=== PATIENT | male | born 1955 | race Caucasian/White ===

== ENCOUNTER 2019-07-12 12:09 | Emergency (ER) | payer MEDICARE ==
--- NOTE | 2019-07-12 12:44 | EDM.PDOC ---
ED HPI GENERAL MEDICAL PROBLEM - General Chief Complaint: Bite:Animal, Insect Stated Complaint: TICK BITE Time Seen by Provider: 07/12/19 12:35 Source of Information: Reports: Patient History Limitations: Reports: No Limitations - History of Present Illness INITIAL COMMENTS - FREE TEXT/NARRATIVE: 10 days ago the pt had a deer tick on his left buttock area. He pulled it off and he was not seen. Onset: Other ( symptoms of fevers and body aches started 2 days ago. ) Duration: Hour(s): Location: Reports: Generalized Associated Symptoms: Reports: No Other Symptoms Generalized Pain Score (Numeric/FACES): 1 - Related Data Allergies Allergy/AdvReac Type Severity Reaction Status Date / Time No Known Allergies Allergy Verified 07/12/19 12:31 Home Meds: Home Meds NK [No Known Home Meds] 07/12/19 [History] Past Medical History Musculoskeletal History: Reports: Gout Endocrine/Metabolic History: Reports: Obesity/BMI 30+ Dermatologic History: Reports: Psoriasis - Past Surgical History Head Surgeries/Procedures: Reports: None Endocrine Surgical History: Reports: None Musculoskeletal Surgical History: Reports: Other (See Below) Other Musculoskeletal Surgeries/Procedures:: rt ankle Dermatological Surgical History: Reports: None Social & Family History - Tobacco Use Smoking Status *Q: Never Smoker Second Hand Smoke Exposure: No - Caffeine Use Caffeine Use: Reports: Coffee - Alcohol Use Days Per Week of Alcohol Use: 7 Number of Drinks Per Day: 4 Total Drinks Per Week: 28 - Recreational Drug Use Recreational Drug Use: No ED ROS GENERAL - Review of Systems Review Of Systems: See Below Constitutional: Reports: Fever, Chills, Malaise, Night Sweats HEENT: Reports: No Symptoms Respiratory: Reports: No Symptoms Cardiovascular: Reports: No Symptoms Endocrine: Reports: No Symptoms GI/Abdominal: Reports: No Symptoms Musculoskeletal: Reports: Muscle Pain Skin: Reports: No Symptoms Neurological: Reports: No Symptoms ED EXAM, ANIMAL BITE - Physical Exam Exam: See Below Text/Narrative:: pt arrived with a history of a deer tick which was removed about 10 days. He did not see anyone and he is now having fevers and joint pain. Exam Limited By: No Limitations General Appearance: Alert, Anxious, Mild Distress Ears: Normal TMs Nose: Normal Inspection Throat/Mouth: Normal Inspection Head: Atraumatic Neck: Normal Inspection Respiratory/Chest: No Respiratory Distress Cardiovascular: Regular Rate, Rhythm GI/Abdominal: Soft (Male) Exam: Deferred Rectal (Males) Exam: Deferred Back Exam: Normal Inspection Extremities: Other (no joint swelling. ) Neurological: Alert, Oriented, Normal Cognition Course - Vital Signs Last Recorded V/S: Last Vital Signs Temp 37.7 C 07/12/19 12:31 Pulse 80 07/12/19 12:31 Resp 20 07/12/19 12:31 BP 144/81 H 07/12/19 12:31 Pulse Ox 96 07/12/19 12:31 - Orders/Labs/Meds Orders: Active Orders 24 hr Category Date Time Status BABESIA MICROTI ANTIBODY PANEL Stat Lab 07/12/19 12:45 Ordered HUMAN GRANULOCYTIC MIAN-HGE Stat Lab 07/12/19 12:44 Ordered LYME, TOTAL AB TEST/REFLEX Stat Lab 07/12/19 12:44 Ordered Meds: Medications Discontinued Medications Generic Name Dose Route Start Last Admin Trade Name Freq PRN Reason Stop Dose Admin Doxycycline Hyclate 200 mg 07/12/19 12:46 Vibramycin PO 07/12/19 12:47 ONETIME ONE - Re-Assessments/Exams Free Text/Narrative Re-Assessment/Exam: 07/12/19 12:53 pt had tick studies drawn and he was given doxycyline 200mg. Departure - Departure Time of Disposition: 12:48 Disposition: Home, Self-Care 01 Condition: Fair Clinical Impression: Tick-borne disease - Discharge Information Referrals: PCP,None [Primary Care Provider] - Forms: ED Department Discharge Care Plan Goals: motrin and tylenol for muscle and joint discomfort, doxycyline 100mg bid for the next 2 weeks. Will notify of the tick studies. Sepsis Event Note - Evaluation Sepsis Screening Result: No Definite Risk - Focused Exam Vital Signs: Vital Signs Temp Pulse Resp BP Pulse Ox 07/12/19 12:31 37.7 C 80 20 144/81 H 96 07/12/19 12:30 37.7 C 80 20 144/81 H 96 Date Exam was Performed: 07/12/19 Time Exam was Performed: 12:50 - My Orders Last 24 Hours: My Active Orders 07/12/19 12:44 HUMAN GRANULOCYTIC MIAN-HGE Stat LYME, TOTAL AB TEST/REFLEX Stat 07/12/19 12:45 BABESIA MICROTI ANTIBODY PANEL Stat - Assessment/Plan Last 24 Hours: My Active Orders 07/12/19 12:44 HUMAN GRANULOCYTIC MIAN-HGE Stat LYME, TOTAL AB TEST/REFLEX Stat 07/12/19 12:45 BABESIA MICROTI ANTIBODY PANEL Stat
[2019-07-12] MEDS ORDERED: Doxycycline 100 MG Cap PO ONE (12:46)
[2019-07-16 13:09] LABS: LYME IGG/IGM AB <0.91 ISR (0.00-0.90)
[2019-07-16 14:09] LABS: HGE IGG TITER Negative (Neg:<1:64); HGE IGM TITER Negative (Neg:<1:20)
[2019-07-16 16:09] LABS: BABESIA MICROTI IGG <1:10 (Neg:<1:10); BABESIA MICROTI IGM <1:10 (Neg:<1:10)
== END 2019-07-12 13:04 | disposition home or self-care (01) ==
LOC: JP.ED 12:09
DX: S30.860A Insect bite (nonvenomous) of lower back and pelvis, initial encounter (principal); M10.9 Gout, unspecified; E66.9 Obesity, unspecified; W57.XXXA Bitten or stung by nonvenomous insect and other nonvenomous arthropods, initial encounter; Z68.32 Body mass index [BMI] 32.0-32.9, adult
CPT/HCPCS: 36415; 86618; 86666; 86753; 99283; A9270

== ENCOUNTER 2021-05-14 09:40 | Day surgery (SDC) | payer MEDICARE ==
[~2021-05-14 09:40] MED LIST: Bupivacaine 0.5% 50 ML MDV ONE; Lidocaine 1% with EPINEPHrine 1:100,000 50 ML MDV ONE; Midazolam 1 MG/ML 2 ML SDV ONE; Propofol 200 MG/20 ML SDV ONE; fentaNYL 100 MCG/2 ML SDV ONE
[2021-05-14] MEDS ORDERED: fentaNYL 100 MCG/2 ML SDV ONE (09:58)
[2021-05-14] MEDS ORDERED: Propofol 200 MG/20 ML SDV ONE ×2 (09:58→10:00)
[2021-05-14] MEDS ORDERED: Midazolam 1 MG/ML 2 ML SDV ONE (09:58)
[2021-05-14] MEDS ORDERED: Sodium Chloride 0.9% 1,000 ML IV SCH (10:15)
[2021-05-14] MEDS ORDERED: ceFAZolin 2 GM in Premix Bag 1 BAG IV ONE (10:45)
== END 2021-05-14 17:26 | disposition home or self-care (01) ==
LOC: JP.SDS 09:40
PROVIDERS: ATTEND Surgery
DX: D17.0 Benign lipomatous neoplasm of skin and subcutaneous tissue of head, face and neck (principal); I10 Essential (primary) hypertension
CPT/HCPCS: 88304; J0690; J2250; J2704; J3010; J3490; J7030